=== PATIENT | female | born 1960 | race Caucasian/White ===

== ENCOUNTER 2021-10-20 03:31 | Day surgery (SDC) | payer OTHER, SELFPAY ==
[2021-10-05 13:29] VITALS: BMI 24.0
--- NOTE | 2021-10-19 11:37 | PM.HPGS ---
History of Present Illness History of Present Illness Consent: Risks, benefits, and alternatives have been discussed and questions answered. Patient agrees to proceed with procedure. Chief complaint: colitis Narrative: Meseret Cronin is a 61 year old female Referred for colon cancer screening. Her last colonoscopy was 16 years ago. At that time she believes that she had been bleeding. She was told when she had a colonoscopy that nothing was found. About Three years ago, when she was taking ibuprofen for pain she began seeing blood her stools. she came to the emergency room and was told that she probably had colitis. She was sent home with antibiotics for presumed infection. No CT scan was done at that time. Review of Systems Review of Systems: All systems reviewed & are unremarkable except as noted in HPI and below PMFSH Social History Social History Smoking status: Never smoker Alcohol intake: current Drinks per week: 1 Living arrangements: with family Spiritual care concerns: No Meds Home Medications and Allergies Home Medications Medication Instructions Recorded Confirmed Type metformin 500 mg PO BID 10/05/21 10/05/21 History olmesartan-hydrochlorothiazide 1 tablet PO DAILY 10/05/21 10/05/21 History Allergies Allergy/AdvReac Type Severity Reaction Status Date / Time tetracycline Allergy Unknown Other Verified 10/20/21 06:43 Exam Resp: Auscultation: clear to auscultation bilaterally Cardio: Rate: regular rate Rhythm: regular rhythm GI: GI Palp: Yes Soft to palpation and No Tenderness to palpation present (GI) Assessment and Plan Assessment and plan (1) Colon cancer screening: Code(s): Z12.11 - Encounter for screening for malignant neoplasm of colon Status: Acute Assessment and Plan: Colonoscopy with possible biopsy or polypectomy or cautery or injection of substances.
[2021-10-20 06:30] VITALS: BP 132/73; PULSE 60; RESP 18; TEMP 37.1; O2SAT 100; BMI 23.3
[2021-10-20 06:42] LABS: Glucose Point of Care 138 mg/dl (65-105)
--- NOTE | 2021-10-20 07:03 | WPDANESEPPF ---
Anes - Initial Pre Proc Eval Procedure: Operation Date: 10/20/21 08:00 Proposed Procedures p Colonoscopy - Cricket Singh MD Date/Time: 10/20/21 07:03 Surgeon: Cricket Singh MD Pre Op Diagnosis: colitis Patient Data Age: 61 Gender: F Height: 1.52 m Weight: 54.3 kg Last Vital Signs Temp 37.1 C 10/20/21 06:30 Pulse 60 10/20/21 06:30 Resp 18 10/20/21 06:30 BP 132/73 10/20/21 06:30 Pulse Ox 100 10/20/21 06:30 Allergies Allergy/AdvReac Type Severity Reaction Status Date / Time tetracycline Allergy Unknown Other Verified 10/20/21 06:43 Home Medications Medication Instructions Recorded Confirmed Type metformin 500 mg PO BID 10/05/21 10/05/21 History olmesartan-hydrochlorothiazide 1 tablet PO DAILY 10/05/21 10/05/21 History Laboratory Tests 10/20/21 06:40 POC Capillary Glucose 138 mg/dl H mg/dl (65-105) Patient hx anesthesia problems: none Family hx anesthesia problems: none Results Review: All pre-operative results and documents have been reviewed as part of the pre-operative evaluation. [facility] Past Medical History Medical History Colitis Diabetes Hyperlipidemia Hypertension Rheumatoid arthritis Social History Social History Smoking status: Never smoker Alcohol intake: current Drinks per week: 1 Living arrangements: with family Spiritual care concerns: No Anes - Eval Final PreProcedure Day of Procedure 10/20/21 07:03 Patient weight: normal Heart: regular rate and rhythm Lungs: clear to auscultation Airway: Mallampati scale class II Neurological: alert and oriented Last oral intake: >/= 8 hours ASA classification: III Emergent: no Anesthetic plan: proceed Anesthesia type and monitoring: general GIVS and standard monitoring Results Review: All pre-operative results and documents have been reviewed as part of the pre-operative evaluation. Informed Consent: The patient's anesthetic plan and its attendant risks and benefits were discussed with the patient/family/POA. Questions were solicited and answers provided to the satisfaction of the patient/family/POA.
[2021-10-20] MEDS: LACTATED RINGERS 1,000 ML 150 ML IV CONT (07:06)
[2021-10-20 08:03] VITALS: BP 101/62; PULSE 70; RESP 21; O2SAT 97
[2021-10-20 08:13] VITALS: BP 100/63; PULSE 59; RESP 20; O2SAT 97
[2021-10-20 08:23] VITALS: BP 141/87; PULSE 67; RESP 18; O2SAT 100
== END 2021-10-20 08:33 | disposition home or self-care (01) ==
PROVIDERS: PCP Family Medicine; Visit Provider Internal Medicine Gastroenterology
PROC: 0DJD8ZZ Inspection of Lower Intestinal Tract, Via Natural or Artificial Opening Endoscopic (ICD-10-PCS; CPT 45378; principal; 2021-10-20 08:00)
DX: Z12.11 Encounter for screening for malignant neoplasm of colon (principal); Z79.84 Long term (current) use of oral hypoglycemic drugs; E11.9 Type 2 diabetes mellitus without complications; I10 Essential (primary) hypertension; E78.5 Hyperlipidemia, unspecified; M06.9 Rheumatoid arthritis, unspecified; Z86.19 Personal history of other infectious and parasitic diseases
CPT/HCPCS: 45378; 82948; J2704; J7120

== ENCOUNTER 2024-10-23 19:13 | Emergency (ER) | payer MEDICARE, SELFPAY ==
[2024-10-23 19:41] VITALS: BP 155/93; PULSE 662; RESP 20; TEMP 36.3; O2SAT 100
--- NOTE | 2024-10-23 20:35 | ED_ITS ---
HPI - Recheck/Abnormal Lab/Rx General Chief Complaint: Recheck/Abnormal Lab/Rx Stated Complaint: blood sugar is high and on no medication Time Seen by Provider: 10/23/24 20:35 Focused HPI: This is a 64 year old female that presents to the ER for high blood sugar. Reports she had blood work yesterday. Her doctor called her this morning concerned about her high blood sugar. Reports she was diagnosed with diabetes one year ago and did not take any medications. Her blood sugar was in the 400s today. Reports polydipsia, polyuria. GENERAL: Well-appearing, well-nourished, and in no acute distress. HEAD: Normocephalic, atraumatic. CHEST: Clear to auscultation. ?No respiratory distress. HEART: Regular rate and rhythm.? NEURO: ?Alert and oriented x3. Patient screened in triage and initial orders placed.? ?Additional care and disposition to be based upon?diagnostic testing and treatment. Related Data Allergies Allergy/AdvReac Type Severity Reaction Status Date / Time tetracycline Allergy Unknown Other Verified 10/23/24 19:40 Review of Systems 2 Review of Systems: CONSTITUTIONAL: Denies fever CARDIOVASCULAR: Denies chest pain RESPIRATORY: Denies dyspnea. GASTROINTESTINAL: Denies vomiting All systems reviewed & are unremarkable except as noted in HPI and below PMFSH Past Medical History Medical History Colitis Diabetes Hyperlipidemia Hypertension Rheumatoid arthritis Social History Social History Smoking status: Never smoker Alcohol intake: current Drinks per week: 1 Lack of Transportation: No Lack of Food: Never True Current Housing: I Have Housing Concerned About Future Housing: No Difficulty Paying Gas/Electric Bills: No Difficulty Paying for Meds: No Currently Unemployed: No Education: Associate Degree Difficulty w/ Childcare or Family Care: No Living arrangements: with family Spiritual care concerns: No Exam 2 Narrative: GENERAL: Well-appearing, well-nourished, and in no acute distress. HEAD: Normocephalic, atraumatic. EYES: EOMI. CHEST: Clear to auscultation. No respiratory distress. No wheezes rales or rhonchi HEART: Regular rate and rhythm. No murmur heard. Normal peripheral pulses. EXTREMITIES: Normal range of motion. No edema. SKIN: Warm, dry, no rash. NEURO: No focal deficits. Alert and oriented x3. PSYCH: Normal mood and affect Course Course Emergency Course: Patient updated on her workup and agrees with plan of care Vital Signs Vital signs: Vital Signs Temperature 97.3 F L 10/23/24 19:41 Pulse Rate 662 H 10/23/24 19:41 Respiratory Rate 20 10/23/24 19:41 Blood Pressure 155/93 H 10/23/24 19:41 Pulse Oximetry 100 10/23/24 19:41 Oxygen Delivery Room Air 10/23/24 19:41 Temperature 97.3 F L 10/23/24 19:41 Pulse Rate 56 L 10/23/24 22:34 Respiratory Rate 19 10/23/24 22:34 Blood Pressure 140/74 10/23/24 22:34 Pulse Oximetry 98 10/23/24 22:34 Oxygen Delivery Room Air 10/23/24 19:41 MDM - Recheck/Abnormal Lab/Rx MDM Narrative Medical decision making narrative: Patient presents the emergency department for outpatient elevated blood sugar and hemoglobin A1c. Reports she was told she has diabetes 1 year ago. She has refused multiple times at PCP visits to take any medications for this. She had further outpatient blood work yesterday which showed that her blood sugar was elevated and her hemoglobin A1c is now 15. Reporting polyuria, polydipsia. Otherwise no complaints. She is overall well-appearing. Her vitals are stable. Cbc without leukocytosis. Metabolic panel without evidence of DKA. Her blood sugar down trended to 277 with hydration. Patient updated on her workup and agrees with plan of care. She was instructed to have close follow up with her PCP for further management of her diabetes. She was given warnings to return to the ER Of note a heart rate of 662 was entered in error, this should read 62 Differential Diagnosis Differential diagnosis: Likely other (Diabetes mellitus, hyperglycemia, dehydration, DKA) Lab Data Attestation: I reviewed the patient's lab results. 10/23/24 22:27 10/23/24 22:27 Labs: Lab Results 10/23/24 10/23/24 10/24/24 Range/Units 21:03 22: 00:01 WBC 8.3 (4.5-10.0) K/mm3 RBC 4.97 (4.2-5.4) M/mm3 Hgb 14.5 (12.0-15.0) g/dL Hct 42.7 (37.0-47.0) % MCV 85.9 (80-100) fl MCH 29.2 (26-34) pg MCHC 34.0 (32-36) g/dl RDW 13.3 (11.5-14.5) % Plt Count 203 (150-375) k/mm3 MPV 10.9 H (7.4-10.4) fl Immature Gran % (Auto) 0.4 (0-0.5) % Neut % (Auto) 40.9 L (45.5-73.1) % Lymph % (Auto) 49.4 H (18.3-44.2) % [place] % (Auto) 6.6 (2.6-8.5) % Eos % (Auto) 1.7 (0-4.4) % Baso % (Auto) 1.0 (0.2-1.2) % Lymph # (Auto) 4.09 H (0.9-3.2) K/mm3 [place] # (Auto) 0.6 (0.1-0.6) K/mm3 Eos # (Auto) 0.1 (0-0.3) K/mm3 Baso # (Auto) 0.1 (0.0-0.1) K/mm3 Abs Immat Gran (auto) 0.03 (0.00-0.031) K/mm3 Absolute Neuts (auto) 3.4 (1.3-6.7) K/mm3 Absolute Nucleated RBC 0.000 (0.0-0.012) K/mm3 Nucleated RBC % 0.0 (0.0-0.2) % Sodium 134 L (137-145) mmol/L Potassium 4.2 (3.4-5.0) mmol/L Chloride 94 L (98-107) mmol/L Carbon Dioxide 31 H (22-30) mmol/L Anion Gap 9 (4-12) mmol/L BUN 17 (7-17) mg/dL Creatinine 0.66 L (0.7-1.0) mg/dL Estim Creat Clear Calc 52 ml/min Estimated GFR > 60 (59 - ) Glucose 324 H (65-110) mg/dL POC Capillary Glucose 277 H (65-105) mg/dl Calcium 9.9 (8.4-10.2) mg/dL Phosphorus 3.8 (2.5-4.5) mg/dL Magnesium 1.8 (1.6-2.3) mg/dL Total Bilirubin 0.7 (0.2-1.3) mg/dL AST 23 (14-36) U/L ALT 24 (6-35) U/L Alkaline Phosphatase 85 (38-126) U/L Total Protein 8.0 (6.3-8.2) g/dL Albumin 4.5 (3.5-5.1) g/dL Beta-Hydroxybutyrate/Acetoacetate 0.17 (0.02-0.27) mmol/L Urine Color Yellow (Yellow) Urine Appearance Clear (Clear) Urine pH 6.5 (5.0-9.0) Ur Specific [place] 1.041 H (1.001-1.035) Urine Protein Negative (Negative) mg/dL Urine Glucose (UA) 3+ H (Negative) mg/dL Urine Ketones Trace H (Negative) mg/dL Ur Blood (Man) Negative (Negative) Urine Nitrate Negative (Negative) Urine Bilirubin Negative (Negative) Urine Urobilinogen 0.2 (<2.0) mg/dL Leukocyte Esterase Rfl Negative (Negative) OLGA/UL Critical Care Time Critical Care Time Critical Care Time: No Discharge Plan Discharge Clinical Impression: Diabetes mellitus Qualifiers: Diabetes mellitus type: type 2 Diabetes mellitus residential insulin use: without termite treater helper use Diabetes mellitus complication status: with hyperglycemia Q ualified Code(s): E11.65 - Type 2 diabetes mellitus with hyperglycemia Patient Disposition: Home, Self-Care Condition: Stable Instructions: Type 2 Diabetes Management for Adults (ED) Additional Instructions: Return to the emergency department if you experience fever, chest pain, shortness of breath, abdominal pain with nausea and vomiting, weakness, numbness, or any other symptoms that are concerning to you. Continue to monitor your blood sugar at home. Remain well hydrated. I have sent a prescription to the pharmacy for Metformin Follow up with primary care doctor Patient Language: [place] Prescriptions: New metformin 500 mg tablet 500 mg PO BID 7 Days Qty: 14 0RF No Action amoxicillin-pot clavulanate 875-125 mg tablet 1 tablet PO BID Qty: 20 0RF olmesartan-hydrochlorothiazide 40-12.5 mg tablet See Rx Instructions .ROUTE .COMPLEX Qty: 30 0RF Dose Instruction: TAKE 1 TABLET BY MOUTH EVERY DAY Rx Instructions: TAKE 1 TABLET BY MOUTH EVERY DAY Follow-up/Referrals: Bridgette Martinez DO [Primary Care Provider] - 3 Days
--- NOTE | 2024-10-23 21:01 | PC.NURSE ---
pt states she also has rapid weight loss
[2024-10-23 21:24] LABS: Add Urine Microscopic? NO; Appearance Urine Clear (Clear); Bilirubin Urine Negative (Negative); Blood Urine Negative (Negative); Color Urine Yellow (Yellow); Glucose Urine UA 3+ mg/dL (Negative); Ketones Urine Trace mg/dL (Negative); Leukocyte Esterase Ur Negative LEU/UL (Negative); Nitrate Urine Negative (Negative); Protein Urine Negative (Negative); Specific Grav Ur 1.041 (1.001-1.035); Urobilinogen Urine 0.2 mg/dL (<2.0); pH Urine 6.5 (5.0-9.0)
[2024-10-23 22:22] VITALS: RESP 18
[2024-10-23 22:33] LABS: Basophils Absolute Auto 0.1 K/mm3 (0.0-0.1); Eosinophils Absolute Auto 0.1 K/mm3 (0-0.3); Eosinophils Percent Auto 1.7 % (0-4.4); Hematocrit 42.7 % (37.0-47.0); Hemoglobin 14.5 g/dL (12.0-15.0); Immature Granulocyte Absolute 0.03 K/mm3 (0.00-0.031); Immature Granulocyte Percent A 0.4 % (0-0.5); Lymphocytes Absolute Auto 4.09 K/mm3 (0.9-3.2); Lymphocytes Percent Auto 49.4 % (18.3-44.2); Mean Corpuscular Hemoglobin 29.2 pg (26-34); Mean Corpuscular Volume 85.9 fl (80-100); Mean Platelet Volume 10.9 fl (7.4-10.4); Monocytes Absolute Auto 0.6 K/mm3 (0.1-0.6); Monocytes Percent Auto 6.6 % (2.6-8.5); Neutrophils Absolute Auto 3.4 K/mm3 (1.3-6.7); Neutrophils Percent Auto 40.9 % (45.5-73.1); Platelet Count Result 203 k/mm3 (150-375); Red Blood Count 4.97 M/mm3 (4.2-5.4); Red Cell Distribution Width 13.3 % (11.5-14.5); White Blood Count 8.3 K/mm3 (4.5-10.0)
[2024-10-23 22:34] VITALS: BP 140/74; PULSE 56; RESP 19; O2SAT 98
[2024-10-23 22:43] LABS: Alanine Aminotransferase 24 U/L (6-35); Albumin Level 4.5 g/dL (3.5-5.1); Alkaline Phosphatase 85 U/L (38-126); Anion Gap 9 mmol/L (4-12); Aspartate Amino Transferase 23 U/L (14-36); Bilirubin,Total 0.7 mg/dL (0.2-1.3); Blood Urea Nitrogen 17 mg/dL (7-17); Calcium 9.9 mg/dL (8.4-10.2); Carbon Dioxide 31 mmol/L (22-30); Chloride 94 mmol/L (98-107); Estimated CRCL calculation 52 ml/min; Estimated Glomerular Filt Rate > 60; Glucose 324 mg/dL (65-110); Magnesium 1.8 mg/dL (1.6-2.3); Phosphorus 3.8 mg/dL (2.5-4.5); Potassium 4.2 mmol/L (3.4-5.0); Sodium 134 mmol/L (137-145)
[2024-10-23] MEDS: SODIUM CHLORIDE 0.9% IV 1,000 ML 999 ML IV CONT (22:47)
[2024-10-23 22:54] LABS: Beta-Hydroxybutyrate/Acetoacetate 0.17 mmol/L (0.02-0.27)
[2024-10-24 00:04] LABS: Glucose Point of Care 277 mg/dl (65-105)
[2024-10-24 01:01] VITALS: BP 136/79; PULSE 61; RESP 17; O2SAT 99
[2024-10-24 01:02] VITALS: BP 136/79; PULSE 61; RESP 17; O2SAT 99
== END 2024-10-24 01:07 | disposition home or self-care (01) ==
PROVIDERS: Emergency Medicine; Emergency Provider Physician Assistant; PCP Family Medicine
DX: E11.65 Type 2 diabetes mellitus with hyperglycemia (principal); E78.5 Hyperlipidemia, unspecified; I10 Essential (primary) hypertension; M06.9 Rheumatoid arthritis, unspecified
CPT/HCPCS: 36415; 80053; 81003; 82010; 82948; 83735; 84100; 85025; 96360; 99283; J7030

== ENCOUNTER 2024-10-28 08:56 | Outpatient (CLI) | payer MEDICARE, SELFPAY ==
--- NOTE | ~2024-10-28 | MM_ITS ---
EXAMINATION: MM screening giulia BI w isak HISTORY: Screening mammogram TECHNIQUE: Craniocaudal and mediolateral oblique 3-D tomosynthesis images were obtained and synthetic 2-D images were generated. CAD analysis was submitted and interpreted. COMPARISON: No prior mammogram is available for comparison at this institution. BREAST PARENCHYMAL COMPOSITION:Not Dense. There are scattered areas of fibroglandular density. FINDINGS: Asymmetry in the right subareolar region on MLO view is present, possibly due to summation artifact, but further evaluation advised. No suspicious parenchymal abnormality the left breast. IMPRESSION: Subareolar asymmetry right breast on MLO view. Spot compression and true lateral views, and possibly ultrasound, are recommended for further evaluation. BI-RADS Category 0: Incomplete: Needs additional imaging evaluation. Reviewed, dictated and finalized at [facility]. [employer]ON[employer] REMEDIATION CONSULTANT IMPRESSION: Subareolar asymmetry right breast on MLO view. Spot compression and true latera l views, and possibly ultrasound, are recommended for further evaluation. BI-RADS Category 0: Incomplete: Needs additional imaging evaluation.
== END 2024-10-28 08:57 | disposition home or self-care (01) ==
PROVIDERS: PCP Family Medicine; Visit Provider Family Medicine
DX: Z12.31 Encounter for screening mammogram for malignant neoplasm of breast (principal); R92.8 Other abnormal and inconclusive findings on diagnostic imaging of breast
CPT/HCPCS: 77063; 77067

== ENCOUNTER 2024-11-10 09:05 | Outpatient (CLI) | payer MEDICARE, SELFPAY ==
--- NOTE | ~2024-11-10 | MMUS_ITS ---
EXAMINATION: MM diagnostic giulia RT w isak, US breast RT limited HISTORY: Right breast asymmetry TECHNIQUE: Additional 3-D tomosynthesis images of the right breast were performed and synthetic 2-D i mages were generated. CAD analysis was submitted and interpreted. High resolution limited right breas t ultrasound was performed. COMPARISON: 10/28/2024 BREAST PARENCHYMAL COMPOSITION:Not Dense. There are scattered areas of fibroglandular density. FINDINGS: MAMMOGRAPHIC FINDINGS: The subareolar right breast asymmetry demonstrates effacement with spot compression. No definite pers istent mass lesion or distortion seen. ULTRASOUND: No solid or cystic lesion seen in the right subareolar region. No dilated ducts. IMPRESSION: No evidence for malignancy. Dense fibroglandular tissue in the right subareolar region. BI-RADS Category 1: Negative Reviewed, dictated and finalized at [facility]. IMPRESSION: No evidence for malignancy. Dense fibroglandular tissue in the right subareolar region. BI-RADS Category 1: Negative
== END 2024-11-10 09:06 | disposition home or self-care (01) ==
PROVIDERS: PCP Family Medicine; Visit Provider Nurse Practitioner
DX: R92.8 Other abnormal and inconclusive findings on diagnostic imaging of breast (principal)
CPT/HCPCS: 76642; 77061; 77065; G0279

== ENCOUNTER 2025-01-06 14:30 | Outpatient (RCR) | payer MEDICARE, SELFPAY | END 2025-02-01 09:35 | disposition home or self-care (01) | LOC: ANHDMC 14:30 | PROVIDERS: PCP Family Medicine; Visit Provider Nurse Practitioner | DX: E11.9 Type 2 diabetes mellitus without complications (principal); Z71.89 Other specified counseling | CPT/HCPCS: G0108; G0109 ==

== ENCOUNTER 2025-05-20 14:30 | Outpatient (RCR) | payer MEDICARE, SELFPAY | END 2025-07-02 15:32 | disposition home or self-care (01) | LOC: ANHDMC 14:30 | PROVIDERS: PCP Family Medicine; Visit Provider Nurse Practitioner | DX: E11.65 Type 2 diabetes mellitus with hyperglycemia (principal); Z71.89 Other specified counseling | CPT/HCPCS: G0109 ==